=== PATIENT | female | born 1960 | race Caucasian/White ===

== ENCOUNTER 2017-03-22 12:43 | Emergency (ER) | payer MEDICARE, MEDICAID ==
[~2017-03-22] VITALS: Ht 177.8 cm; Wt 98.2 kg
[~2017-03-22 12:43] MED LIST: AMBIEN 10MG10 MG PO; AMERGE 2.5MG T2.5 MG PO; ATIVAN 1MG T1 MG/TAB PO; BENADRYL50 MG PO; KLONOPIN 1MG1 MG PO; LAMICTAL200 MG PO; NITROSTAT0.4 MG/TAB SL; PAXIL 20MG20 MG PO; SEROQUEL XR300 MG PO; SEROQUEL50 MG PO; SYNTHROID0.088 MG/T PO; TENORMIN 2525 MG/TAB PO; TENORMIN 5050 MG/TAB PO; TYLENOL 8 HR PO; TYLENOL W/COD1 UDTAB PO; ZANTAC 150MG T150 MG PO
[2017-03-22 12:55] VITALS: BP 122/71; TEMP 98
[2017-03-22] MEDS ORDERED: VALIUM 2MG T2 MG/TAB PO (14:11)
[2017-03-22 14:39] VITALS: PULSE 88
== END 2017-03-22 14:41 | disposition home or self-care (01) ==
LOC: COL.ER 12:43
DX: M54.5 Low back pain (principal); M62.830 Muscle spasm of back; E03.9 Hypothyroidism, unspecified; Z87.39 Personal history of other diseases of the musculoskeletal system and connective tissue
CPT/HCPCS: J2360

== ENCOUNTER 2017-03-24 11:36 | Emergency (ER) | payer MEDICARE, MEDICAID ==
[~2017-03-24] VITALS: Ht 177.8 cm; Wt 98.2 kg
[~2017-03-24 11:36] MED LIST changes: +VALIUM 2MG T2 MG/TAB PO
[2017-03-24 11:45] VITALS: BP 133/66; PULSE 86; TEMP 98.1
[2017-03-24] MEDS ORDERED: VITAMIN D 50,1.25 MG PO (12:05)
[2017-03-24] MEDS ORDERED: VALIUM 2MG T2 MG/TAB PO (12:37)
== END 2017-03-24 12:55 | disposition home or self-care (01) ==
LOC: COL.ER 11:36
DX: M54.5 Low back pain (principal); I10 Essential (primary) hypertension; G89.29 Other chronic pain; M06.9 Rheumatoid arthritis, unspecified; I34.1 Nonrheumatic mitral (valve) prolapse
CPT/HCPCS: J2360

== ENCOUNTER 2019-01-10 08:55 | Emergency (ER) | payer MEDICARE, MEDICAID ==
[~2019-01-10] VITALS: Ht 177.8 cm; Wt 95.9 kg
[2019-01-10 08:55] VITALS: TEMP 97.9
[~2019-01-10 08:55] MED LIST changes: +VITAMIN D 50,1.25 MG PO
[2019-01-10 09:18] LABS: BASO # 0.1 (0.0-0.2); BASO % 0.7 % (0.0-2.0); EOS # 0.1 (0.0-0.7); EOS % 1.5 % (0-4.0); GRAN % 42.5 % (42.2-75.2); HEMATOCRIT 41.6 % (37.0-47.0); HEMOGLOBIN 13.6 g/dl (12.5-16.0); LYMPH # 3.5 (1.2-3.4); LYMPH % 48.5 % (20.0-51.0); MEAN CELL VOLUME 92 fl (80.0-100.0); MEAN CORPUSCULAR HEMOGLOBIN 30 pg (27.0-31.0); MEAN CORPUSCULAR HGB CONC 33 g/dl (33.0-37.0); MEAN PLATELET VOLUME 11.9 fl (7.4-10.4); MONO # 0.5 (0.1-0.6); MONO % 6.5 % (1.7-9.3); PLATELET COUNT 183 K/mm3 (130-400); RED BLOOD COUNT 4.54 M/mm3 (4.10-5.30)
[2019-01-10 09:21] LABS: INR 1.1 (0.8-3.0); PROTHROMBIN TIME 12.1 SECONDS (9.7-12.8)
[2019-01-10 09:23] LABS: PARTIAL THROMBOPLASTIN TIME 32.7 SECONDS (26.0-37.0)
[2019-01-10 09:27] LABS: ALANINE AMINOTRANSFERASE 12 U/L (9-52); ALBUMIN 4.2 gm/dL (3.5-5.0); ALKALINE PHOSPHATASE 64 U/L (50-136); ANION GAP 11 mmol/L (7-16); AST,SGOT 23 U/L (15-37); BILIRUBIN,TOTAL 0.7 mg/dL (0.0-1.0); BLOOD UREA NITROGEN 13 mg/dL (7-17); CALCIUM 9.1 mg/dL (8.4-10.2); CARBON DIOXIDE 26 mmol/L (22-30); CHLORIDE 105 mmol/L (98-107); CREATININE, serum 1.12 (0.52-1.25); GLUCOSE 116 mg/dL (74-106); POTASSIUM 3.9 mmol/L (3.4-5.0); SODIUM 142 mmol/L (137-145); TOTAL PROTEIN 7.6 gm/dL (6.4-8.2)
[2019-01-10 09:38] LABS: TROPONIN-I < 0.012 ng/mL (0.000-0.035)
[2019-01-10 13:12] VITALS: BP 107/59; PULSE 72
== END 2019-01-10 13:14 | disposition home or self-care (01) ==
LOC: COL.ER 08:55
PROVIDERS: Family Medicine
DX: R07.89 Other chest pain (principal); Z86.79 Personal history of other diseases of the circulatory system
CPT/HCPCS: Q9967

== ENCOUNTER 2019-11-06 10:52 | Outpatient (RCR) | payer MEDICARE, MEDICAID | END 2020-02-04 | disposition home or self-care (01) | LOC: WSC | DX: M17.11 Unilateral primary osteoarthritis, right knee (principal); Z96.651 Presence of right artificial knee joint ==

== ENCOUNTER 2020-01-07 14:15 | Outpatient (RCR) | payer MEDICARE, MEDICAID | END 2020-02-10 | disposition home or self-care (01) | LOC: WSC | DX: M17.11 Unilateral primary osteoarthritis, right knee (principal); Z96.651 Presence of right artificial knee joint | CPT/HCPCS: G0283-GP ==

== ENCOUNTER → 2020-02-11 | Outpatient (CLI) | payer MEDICARE, MEDICAID ==
[2020-02-11 10:00] LABS: HEMATOCRIT 42.3 % (37.0-47.0); HEMOGLOBIN 13.9 g/dl (12.5-16.0); MEAN CELL VOLUME 89 fl (80.0-100.0); MEAN CORPUSCULAR HEMOGLOBIN 29 pg (27.0-31.0); MEAN CORPUSCULAR HGB CONC 33 g/dl (33.0-37.0); MEAN PLATELET VOLUME 11.8 fl (7.4-10.4); PLATELET COUNT 204 K/mm3 (130-400); RED BLOOD COUNT 4.75 M/mm3 (4.10-5.30); REDCELL DISTRIBUTION WIDTH-CV 12.9 % (11.5-14.5)
[2020-02-11 10:52] LABS: ERYTHROCYTE SEDIMENTATION RATE 18 mm/hr (0-30)
== END ==
LOC: COL.LAB 09:40
PROVIDERS: Orthopaedic Surgery
DX: M25.461 Effusion, right knee (principal)

== ENCOUNTER → 2020-02-18 | Outpatient (CLI) | payer MEDICARE, MEDICAID ==
[2020-02-18 12:06] LABS: HEMATOCRIT 42.2 % (37.0-47.0); MEAN CELL VOLUME 90 fl (80.0-100.0); MEAN CORPUSCULAR HEMOGLOBIN 30 pg (27.0-31.0); MEAN CORPUSCULAR HGB CONC 33 g/dl (33.0-37.0); MEAN PLATELET VOLUME 11.8 fl (7.4-10.4); PLATELET COUNT 185 K/mm3 (130-400); RED BLOOD COUNT 4.69 M/mm3 (4.10-5.30)
[2020-02-18 12:35] LABS: ERYTHROCYTE SEDIMENTATION RATE 20 mm/hr (0-30)
== END ==
LOC: COL.LAB 11:45
PROVIDERS: Orthopaedic Surgery
DX: M25.561 Pain in right knee (principal); Z96.651 Presence of right artificial knee joint